=== PATIENT | female | born 1965 | race Caucasian/White ===

== ENCOUNTER 2016-09-28 15:29 | Emergency (ER) | payer BC ==
[2016-09-28] MEDS ORDERED: KLONOPIN0.5 MG PO (15:33)
[2016-09-28] MEDS ORDERED: NORFLEX100 M1 PO (15:33)
[2016-09-28] MEDS ORDERED: VENLAFAXINE HCL75 M2 PO (15:33)
== END 2016-09-28 16:34 | disposition home or self-care (01) ==
LOC: SED 15:29
DX: J02.0 Streptococcal pharyngitis (principal)
CPT/HCPCS: 87880; 96372; 99282; J0561